=== PATIENT | female | born 1995 | race African-American/Black ===

== ENCOUNTER 2018-08-14 10:40 | Day surgery (SDC) | payer OTHER ==
[~2018-08-14] VITALS: Ht 177.8 cm; Wt 104.3 kg
[2018-08-14] MEDS ORDERED: fentaNYL 0.05 MG/ML VIAL ONE (12:24)
[2018-08-14] MEDS ORDERED: LIDOCAINE 2% 100 MG/5 ML UJET TP ONE (12:24)
[2018-08-14] MEDS ORDERED: MIDAZOLAM 2 MG/2 ML VIAL ONE ×3 (12:26→12:39)
[2018-08-14] MEDS ORDERED: ED NON STOCK ORDER 1 EA MISC MC ONE (12:55)
[2018-08-14] MEDS ORDERED: MISC INJECTION IV ONE (13:05)
== END 2018-08-14 13:10 | disposition home or self-care (01) ==
LOC: MMU 10:40 → MDS 10:40
PROVIDERS: ATTEND Internal Medicine Gastroenterology
DX: E11.43 Type 2 diabetes mellitus with diabetic autonomic (poly)neuropathy (principal); K31.84 Gastroparesis; K22.10 Ulcer of esophagus without bleeding; I10 Essential (primary) hypertension; E66.9 Obesity, unspecified; Z68.33 Body mass index [BMI] 33.0-33.9, adult; G89.29 Other chronic pain; F17.210 Nicotine dependence, cigarettes, uncomplicated; Z88.8 Allergy status to other drugs, medicaments and biological substances; Z79.899 Other long term (current) drug therapy; Z90.49 Acquired absence of other specified parts of digestive tract; Z98.890 Other specified postprocedural states
CPT/HCPCS: 43236; 81025; J2250; J7030; J3010

== ENCOUNTER 2019-02-05 10:42 | Day surgery (SDC) | payer MEDICAID ==
[~2019-02-05] VITALS: Ht 175.3 cm; Wt 84.8 kg
[2019-02-05] MEDS ORDERED: fentaNYL 0.05 MG/ML VIAL ONE (13:28)
[2019-02-05] MEDS ORDERED: MIDAZOLAM 2 MG/2 ML VIAL ONE (13:33)
== END 2019-02-05 14:30 | disposition home or self-care (01) ==
LOC: MDS 10:42 → MTU 12:22 → MMU 12:29 → MDS 14:30
PROVIDERS: ATTEND Internal Medicine Gastroenterology
DX: R10.13 Epigastric pain (principal); K20.9 Esophagitis, unspecified; E10.43 Type 1 diabetes mellitus with diabetic autonomic (poly)neuropathy; K31.84 Gastroparesis; Z88.8 Allergy status to other drugs, medicaments and biological substances; Z79.899 Other long term (current) drug therapy
CPT/HCPCS: 43235; 81025; J2250; J3010

== ENCOUNTER 2019-05-28 08:18 | Day surgery (SDC) | payer MEDICAID ==
[~2019-05-28] VITALS: Ht 177.8 cm; Wt 84.8 kg
[2019-05-28] MEDS ORDERED: MIDAZOLAM 2 MG/2 ML VIAL ONE (09:12)
[2019-05-28] MEDS ORDERED: fentaNYL 0.05 MG/ML VIAL ONE (09:12)
[2019-05-28] MEDS ORDERED: MIDAZOLAM 2 MG/2 ML VIAL IVP ONE (09:37)
[2019-05-28] MEDS ORDERED: fentaNYL 0.05 MG/ML VIAL IVP ONE (09:40)
== END 2019-05-28 11:35 | disposition home or self-care (01) ==
LOC: MDS 08:18 → MMU 08:22 → MDS 11:35
PROVIDERS: ATTEND Internal Medicine Gastroenterology
DX: R10.13 Epigastric pain (principal); K20.9 Esophagitis, unspecified; K29.70 Gastritis, unspecified, without bleeding; E11.9 Type 2 diabetes mellitus without complications; Z88.8 Allergy status to other drugs, medicaments and biological substances; Z79.899 Other long term (current) drug therapy
CPT/HCPCS: 36415; 43239; 81025; 86677; J2250; J3010